=== PATIENT | male | born 1955 | race Caucasian/White ===

== ENCOUNTER → 2021-01-11 07:55 | Outpatient (CLI) | payer MEDICARE, OTHER, SELFPAY ==
--- NOTE | 2021-01-11 | DI.US.S_ITS ---
PROCEDURE: US ABD AORTA ANEURYSM SCREEN INDICATIONS: SCREEN TECHNIQUE: Real time scanning was performed of the aorta and iliac arteries, with image documentation. COMPARISON: [facility], CT, CT KUB, 12/13/2020, 13:50. FINDINGS: Aorta: Proximal aortic diameter not well seen. (Approximately 2.[address] KUB 12/13/2020). Mid-aorta measures 2.3 cm. Distal aortic diameter is 1.5 cm. Calcified plaque is seen. Iliac arteries: Right common iliac artery measures 1.2 cm. Left common iliac artery measures 1 cm. IMPRESSION: No abdominal aortic aneurysm. The proximal abdominal aorta is not well seen on this exam. However, on the prior CT measure approximately 2.5 cm. Follow-up abdominal ultrasound in 5 years is recommended if additional imaging of the aorta in the interval is not acquired. Dictated by: Paco Blanchard M.D. on 01/11/2021 at 10:05 Approved by: Paco Blanchard M.D. on 01/11/2021 at 10:12
== END ==
PROVIDERS: PCP Family Medicine; Referring Provider Family Medicine; Visit Provider Family Medicine
DX: Z13.6 Encounter for screening for cardiovascular disorders (principal)
CPT/HCPCS: 76706

== ENCOUNTER → 2023-01-22 11:16 | Outpatient (CLI) | payer MEDICARE, OTHER, SELFPAY ==
--- NOTE | 2023-01-22 | DI.US.S_ITS ---
PROCEDURE: US PERIPH VENOUS LOW EXTREM RT INDICATIONS: OTHER SPECIFIED DISORDERS OF VEIN TECHNIQUE: Real-time imaging, as well as color and pulse Doppler interrogation, were performed of the lower extremity deep veins from the inguinal ligament to the popliteal fossa. COMPARISON: None. FINDINGS: The common femoral, femoral and popliteal veins are normally compressible, and free of intraluminal thrombus. Color and pulse Doppler demonstrate normal phasic intraluminal flow. There is normal augmentation response to distal compression maneuver. An enlarged right groin lymph node is seen that measures 3.3 x 1.3 x 3.3 cm. Mild edema is seen within the right calf. IMPRESSION: Negative for deep venous thrombosis. Dictated by: Rodo Gilliland M.D. on 01/22/2023 at 11:08 Approved by: Rodo Gilliland M.D. on 01/22/2023 at 11:10
== END ==
PROVIDERS: PCP Family Medicine; Referring Provider Podiatrist; Visit Provider Podiatrist
DX: I87.8 Other specified disorders of veins (principal); R60.0 Localized edema; R59.0 Localized enlarged lymph nodes
CPT/HCPCS: 93971

== ENCOUNTER → 2023-04-02 11:39 | Outpatient (CLI) | payer MEDICARE, OTHER, SELFPAY | PROVIDERS: PCP Family Medicine; Referring Provider Podiatrist; Visit Provider Surgery | DX: E11.621 Type 2 diabetes mellitus with foot ulcer (principal); L97.512 Non-pressure chronic ulcer of other part of right foot with fat layer exposed; L84 Corns and callosities; I87.2 Venous insufficiency (chronic) (peripheral); E11.40 Type 2 diabetes mellitus with diabetic neuropathy, unspecified | CPT/HCPCS: 11042; 99204; 99213 ==

== ENCOUNTER → 2023-04-09 10:29 | Outpatient (CLI) | payer MEDICARE, OTHER, SELFPAY ==
--- NOTE | 2023-04-09 10:30 | DI.RAD.S_ITS ---
PROCEDURE: XR FOOT RT MIN 3V INDICATIONS: eval for osteo, wound right hallux TECHNIQUE: 3 views of the foot were acquired. COMPARISON: None. FINDINGS: Bones: No fractures or dislocations. No suspicious bony lesions. Polyarticular degenerative changes of the foot. Prominent plantar and posterior calcaneal enthesophytes. Soft tissues: No tibiotalar joint effusion. IMPRESSION: No definite or obvious radiographic evidence of osteomyelitis. If symptoms persist, follow-up radiographs and/or MRI or nuclear medicine bone scan may be helpful for further evaluation. Dictated by: Dillon Andrea M.D. on 04/09/2023 at 13:09 Approved by: Dillon Andrea M.D. on 04/09/2023 at 13:14
== END ==
PROVIDERS: PCP Family Medicine; Referring Provider Surgery; Visit Provider Surgery
DX: E11.621 Type 2 diabetes mellitus with foot ulcer (principal); L97.519 Non-pressure chronic ulcer of other part of right foot with unspecified severity
CPT/HCPCS: 73630

== ENCOUNTER → 2023-04-15 14:48 | Outpatient (CLI) | payer MEDICARE, OTHER, SELFPAY | PROVIDERS: PCP Family Medicine; Referring Provider Podiatrist; Visit Provider Surgery | DX: Z86.31 Personal history of diabetic foot ulcer (principal); E11.40 Type 2 diabetes mellitus with diabetic neuropathy, unspecified | CPT/HCPCS: 99212; 99213 ==

== ENCOUNTER → 2023-04-29 08:33 | Outpatient (CLI) | payer MEDICARE, OTHER, SELFPAY | PROVIDERS: PCP Family Medicine; Referring Provider Podiatrist; Visit Provider Surgery | DX: E11.621 Type 2 diabetes mellitus with foot ulcer (principal); L97.512 Non-pressure chronic ulcer of other part of right foot with fat layer exposed; E11.40 Type 2 diabetes mellitus with diabetic neuropathy, unspecified | CPT/HCPCS: 99212; 99213 ==

== ENCOUNTER → 2023-11-05 | Outpatient (CLI) | payer MEDICARE, OTHER, SELFPAY ==
--- NOTE | 2023-11-05 10:00 | DI.RAD.S_ITS ---
PROCEDURE: XR TOE LT MIN 2V INDICATIONS: Ulcer to Left Hallux TECHNIQUE: Three views of the great toe(s) acquired. COMPARISON: None. FINDINGS: Bones: No acute fracture or dislocation. Prominent scattered degenerative spurs throughout the 1st digit. Mild joint space loss. No definite periostitis or cortical erosion. Soft tissues: No radiodense foreign body or soft tissue gas. No suspicious calcifications. IMPRESSION: Scattered multifocal juxta-articular spurring. No radiographic evidence of osteomyelitis, however radiographs are insensitive in the early phase, and if there is further concern for osteomyelitis, MR imaging is recommended. Dictated by: Carole Bey M.D. on 11/05/2023 at 16:55 Approved by: Carole Bey M.D. on 11/05/2023 at 16:58
== END ==
LOC: RAD 09:57
PROVIDERS: PCP Family Medicine; Referring Provider Surgery; Visit Provider Surgery
DX: E11.621 Type 2 diabetes mellitus with foot ulcer (principal); L97.522 Non-pressure chronic ulcer of other part of left foot with fat layer exposed; E11.42 Type 2 diabetes mellitus with diabetic polyneuropathy; L84 Corns and callosities; I87.2 Venous insufficiency (chronic) (peripheral)
CPT/HCPCS: 11042; 73660; 87070; 87075; 87077; 87147; 87186; 87205; 99214

== ENCOUNTER → 2023-11-05 | Outpatient (CLI) | payer MEDICARE, OTHER, SELFPAY | LOC: WC 09:34 | PROVIDERS: PCP Family Medicine; Visit Provider Surgery | DX: L97.522 Non-pressure chronic ulcer of other part of left foot with fat layer exposed (principal); E11.621 Type 2 diabetes mellitus with foot ulcer; E11.42 Type 2 diabetes mellitus with diabetic polyneuropathy; L84 Corns and callosities; I87.2 Venous insufficiency (chronic) (peripheral) | CPT/HCPCS: 11042; 87070; 87075; 87077; 87147; 87186; 87205; 99214 ==

== ENCOUNTER → 2023-11-12 11:36 | Outpatient (CLI) | payer MEDICARE, OTHER, SELFPAY | LOC: WC 11:44 | PROVIDERS: PCP Family Medicine; Visit Provider Surgery | DX: E11.621 Type 2 diabetes mellitus with foot ulcer (principal); E11.42 Type 2 diabetes mellitus with diabetic polyneuropathy; L97.522 Non-pressure chronic ulcer of other part of left foot with fat layer exposed; L97.511 Non-pressure chronic ulcer of other part of right foot limited to breakdown of skin | CPT/HCPCS: 11042; 99213 ==

== ENCOUNTER → 2023-11-26 08:50 | Outpatient (CLI) | payer MEDICARE, OTHER, SELFPAY | LOC: WC 08:51 | PROVIDERS: PCP Family Medicine; Visit Provider Surgery | DX: L97.522 Non-pressure chronic ulcer of other part of left foot with fat layer exposed (principal); E11.621 Type 2 diabetes mellitus with foot ulcer; E11.42 Type 2 diabetes mellitus with diabetic polyneuropathy; I87.2 Venous insufficiency (chronic) (peripheral); I48.91 Unspecified atrial fibrillation; L84 Corns and callosities | CPT/HCPCS: 11042; 99213 ==

== ENCOUNTER → 2023-12-03 08:52 | Outpatient (CLI) | payer MEDICARE, OTHER, SELFPAY | PROVIDERS: PCP Family Medicine; Referring Provider Radiology Diagnostic Radiology; Visit Provider Surgery | DX: E11.621 Type 2 diabetes mellitus with foot ulcer (principal); E11.42 Type 2 diabetes mellitus with diabetic polyneuropathy; L97.522 Non-pressure chronic ulcer of other part of left foot with fat layer exposed; L84 Corns and callosities; I48.91 Unspecified atrial fibrillation | CPT/HCPCS: 11042 ==

== ENCOUNTER → 2023-12-10 08:56 | Outpatient (CLI) | payer MEDICARE, OTHER, SELFPAY | LOC: WC 08:57 | PROVIDERS: PCP Family Medicine; Visit Provider Surgery | DX: L97.522 Non-pressure chronic ulcer of other part of left foot with fat layer exposed (principal); E11.621 Type 2 diabetes mellitus with foot ulcer; E11.42 Type 2 diabetes mellitus with diabetic polyneuropathy; L84 Corns and callosities; I48.91 Unspecified atrial fibrillation; M10.072 Idiopathic gout, left ankle and foot | CPT/HCPCS: 11042 ==

== ENCOUNTER → 2023-12-17 08:41 | Outpatient (CLI) | payer MEDICARE, OTHER, SELFPAY | LOC: WC 08:42 | PROVIDERS: PCP Family Medicine; Referring Provider Radiology Diagnostic Radiology; Visit Provider Surgery | DX: L97.522 Non-pressure chronic ulcer of other part of left foot with fat layer exposed (principal); E11.621 Type 2 diabetes mellitus with foot ulcer; E11.42 Type 2 diabetes mellitus with diabetic polyneuropathy; L84 Corns and callosities; I48.91 Unspecified atrial fibrillation | CPT/HCPCS: 11042 ==

== ENCOUNTER → 2023-12-24 09:01 | Outpatient (CLI) | payer MEDICARE, OTHER, SELFPAY | LOC: WC 09:02 | PROVIDERS: PCP Family Medicine; Visit Provider Surgery | DX: E11.621 Type 2 diabetes mellitus with foot ulcer (principal); L97.522 Non-pressure chronic ulcer of other part of left foot with fat layer exposed; L84 Corns and callosities; E11.42 Type 2 diabetes mellitus with diabetic polyneuropathy; I87.2 Venous insufficiency (chronic) (peripheral); I48.91 Unspecified atrial fibrillation | CPT/HCPCS: 15275; 99213; Q4196 ==

== ENCOUNTER → 2023-12-31 09:18 | Outpatient (CLI) | payer MEDICARE, OTHER, SELFPAY | LOC: WC 09:21 | PROVIDERS: PCP Family Medicine; Visit Provider Surgery | DX: E11.621 Type 2 diabetes mellitus with foot ulcer (principal); E11.42 Type 2 diabetes mellitus with diabetic polyneuropathy; L97.522 Non-pressure chronic ulcer of other part of left foot with fat layer exposed; L84 Corns and callosities; I48.91 Unspecified atrial fibrillation; C91.10 Chronic lymphocytic leukemia of B-cell type not having achieved remission | CPT/HCPCS: 15275; Q4196 ==

== ENCOUNTER → 2024-01-07 10:07 | Outpatient (CLI) | payer MEDICARE, OTHER, SELFPAY | LOC: WC 10:11 | PROVIDERS: PCP Family Medicine; Referring Provider Radiology Diagnostic Radiology; Visit Provider Surgery | DX: E11.621 Type 2 diabetes mellitus with foot ulcer (principal); E11.42 Type 2 diabetes mellitus with diabetic polyneuropathy; L97.522 Non-pressure chronic ulcer of other part of left foot with fat layer exposed; L84 Corns and callosities; I87.2 Venous insufficiency (chronic) (peripheral); I48.91 Unspecified atrial fibrillation; M10.072 Idiopathic gout, left ankle and foot | CPT/HCPCS: 15275; Q4196 ==

== ENCOUNTER → 2024-01-13 09:31 | Outpatient (CLI) | payer MEDICARE, OTHER, SELFPAY | PROVIDERS: PCP Family Medicine; Visit Provider Surgery | DX: L97.522 Non-pressure chronic ulcer of other part of left foot with fat layer exposed (principal); E11.621 Type 2 diabetes mellitus with foot ulcer; E11.42 Type 2 diabetes mellitus with diabetic polyneuropathy; L84 Corns and callosities | CPT/HCPCS: 11042 ==